=== PATIENT | female | born 1950 | race Caucasian/White ===

== ENCOUNTER 2017-05-07 17:26 | Emergency (ER) | payer SELFPAY ==
[2017-05-07 17:32] VITALS: BP 156/85
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
[2017-05-07] MEDS ORDERED: Silver Nitrate/Potassium Nitr* 1 EA STICK TOPICAL ONE (18:04)
== END 2017-05-07 18:25 | disposition home or self-care (01) ==
LOC: UCEAST 17:26
DX: S81.811S Laceration without foreign body, right lower leg, sequela (principal); X58.XXXS Exposure to other specified factors, sequela; Y99.9 Unspecified external cause status
CPT/HCPCS: 99202; A9270-GY; G0463